=== PATIENT | male | born 1995 | race Caucasian/White ===

== ENCOUNTER 2016-12-19 04:41 | Emergency (ER) | payer OTHER ==
[~2016-12-19] VITALS: Ht 180.3 cm; Wt 100.4 kg
[~2016-12-19 04:41] MED LIST: BACT800T5 PO
[2016-12-19 04:45] VITALS: BP 134/76; PULSE 96; RESP 16; TEMP 97.9; O2SAT 99
[2016-12-19] MEDS ORDERED: CLINDAMYCIN 150 MG CAP PO ONE (05:15)
[2016-12-19] MEDS ORDERED: IBUPROFEN 800 MG TAB PO ONE (05:15)
[2016-12-19] MEDS ORDERED: CLIN1CAP5 PO (05:16)
--- NOTE | 2016-12-19 05:16 | PD ---
HPI Chief Complaint: Lump, Cyst, Hernia Time Seen by Provider: 05:08 Travel History International Travel<30 days: No Contact w/Intl Traveler<30days: No Traveled to known affect area: No History of Present Illness HPI 21-year-old male with history of asthma presents to the emergency department for complaint of buttock cleft pain. Patient has noticed discomfort to the area for 2 days. Patient states proximal or 2 days ago there is a small pinpoint size amount of purulent drainage and subsequently the area has become increasingly hard without increasing in size. Patient has had no fever no chills no nausea no vomiting no abdominal pain. Patient has been applying warm compresses to the area. Patient states area is quite tender to palpation but is not soft or fluctuant. Patient has taken 400 mg of ibuprofen as a one-time dose and then a subsequent 200 mg dose of ibuprofen. Patient denies other concerns or complaints. Patient is not identified and alleviating factor but does note that palpating this site does seem to increase the pain. PFSH Past Medical History Narrative Medical Asthma immunizations current tobacco use nursing notes reviewed Hx Anticoagulant Therapy: No Asthma: Yes Cardiovascular Problems: No Chemotherapy: No Cerebrovascular Accident: No Diabetes: No Diminished Hearing: No Respiratory: Yes (ASTHMA) Immunizations Current: Yes Influenza Vaccination: No Past Surgical History Surgical History: No Previous Surgery Social History Alcohol Use: No Tobacco Use: Yes (1/2PPD) Substance Use: No Allergies-Medications (Allergen,Severity, Reaction): Coded Allergies: Smoke (Verified Allergy, Severe, Sneezing, 12/19/16) cat dander (Unverified Allergy, Severe, Anaphylaxis, 12/19/16) feathers (Unverified Allergy, Severe, Anaphylaxis, 12/19/16) Reported Meds & Prescriptions Reported Meds & Active Scripts Active No Active Prescriptions or Reported Medications Review of Systems Except as stated in HPI: all other systems reviewed are Neg General / Constitutional: No: Fever, Chills HENT: No: Congestion Gastrointestinal: No: Vomiting, Abdominal Pain Skin: Positive Rash, Positive Lumps (buttock cleft) Hematologic/Lymphatic: No: Lymph Node Enlargement Physical Exam Narrative GENERAL: Well-developed well-nourished male in no acute distress no respiratory distress SKIN: Warm and dry. Attention buttock cleft 1 cm by half centimeter of indurated erythema with no central pointing or fluctuance tender to palpation no pustule or vesicle BACK: Nontender without obvious deformity. No CVA tenderness. Data Data Last Documented VS Vital Signs Date Time Temp Pulse Resp B/P (MAP) Pulse Ox O2 Delivery O2 Flow Rate FiO2 12/19/16 04:45 97.9 96 16 134/76 (95) 99 Orders Orders Clindamycin (Cleocin) (12/19/16 05:15) Ibuprofen (Motrin) (12/19/16 05:15) MDM Medical Decision Making Medical Screen Exam Complete: Yes Emergency Medical Condition: Yes Medical Record Reviewed: Yes Differential Diagnosis Pilonidal cyst, pilonidal abscess, furuncle Narrative Course Patient exam consistent with probable inflammation of a pilonidal cyst with early abscess site is quite firm and tender however non-fluctuant non-pointing. Discussed with patient in detail recommendation to attempt incision and drainage of site however is aware that may require repeat I&D if insufficient drainage. Patient states that he does not want to have incision and drainage but will take antibiotic. Discussed with patient that antibiotic may be successful and resolving this infection and taking the medication early however have explained to the patient that definitively he will need to return if he does not have incision and drainage at this time to have I&D of the site. Patient identifies that he understands but would like to proceed only with oral antibiotic at this time. Patient given first dose of oral antibiotic clindamycin as well as a one-time dose of weight-based ibuprofen for pain relief. Diagnosis Primary Impression: Infected pilonidal cyst Referrals: Primary Care Physician 2 days Patient Instructions: General Instructions Additional Instructions: Apply warm compresses May use ibuprofen/Advil/Motrin 800 mg as often as every 8 hours as needed for pain associated with inflammation or for fever 100.4F or greater May use acetaminophen/Tylenol as needed for fever 100.4F or greater or for minor pain Complete course of antibiotic Recommend recheck in 24-48 hours for incision and drainage of site or sooner if needed Return to the emergency department for any concerns or change in condition Follow-up with primary care provider Med/Other Pt SpecificInfo: Prescription(s) given Scripts Clindamycin (Clindamycin) 150 Mg Cap 300 MG PO Q6H for Infection for 7 Days, #56 CAP 0 Refills Prov: Aurora Dawn MD 12/19/16 Disposition: 01 DISCHARGE HOME Condition: Stable Aurora Dawn MD Dec 19, 2016 05:16
== END 2016-12-19 05:27 | disposition home or self-care (01) ==
LOC: PHED 04:41
DX: L05.01 Pilonidal cyst with abscess (principal); F17.210 Nicotine dependence, cigarettes, uncomplicated; J45.909 Unspecified asthma, uncomplicated
CPT/HCPCS: 99283

== ENCOUNTER 2017-01-02 14:50 | Emergency (ER) | payer OTHER ==
[~2017-01-02] VITALS: Ht 180.3 cm; Wt 101.5 kg
[~2017-01-02 14:50] MED LIST changes: -BACT800T5 PO; +CLIN1CAP5 PO
[2017-01-02 14:59] VITALS: BP 146/80; PULSE 97; RESP 18; TEMP 99.8; O2SAT 98
--- NOTE | 2017-01-02 15:37 | PD ---
HPI Chief Complaint: ENT Complaint Time Seen by Provider: 15:23 Travel History International Travel<30 days: No Contact w/Intl Traveler<30days: No Traveled to known affect area: No History of Present Illness HPI 21-year-old male here for evaluation of sore throat and cough for 1 day. States he has had strep throat prior with similar symptoms. Says he is having a difficult time sleeping because of the pain in his throat and mild headaches. Productive cough produces green sputum. He denies fever/chills, nausea, neck stiffness, vomiting, diarrhea, chest pain, shortness of breath. PFSH Past Medical History Hx Anticoagulant Therapy: No Asthma: Yes Cardiovascular Problems: No Chemotherapy: No Cerebrovascular Accident: No Diabetes: No Diminished Hearing: No Respiratory: Yes (ASTHMA) Immunizations Current: Yes ?: Not Social History Alcohol Use: No Tobacco Use: Yes (1/2PPD) Substance Use: No Allergies-Medications (Allergen,Severity, Reaction): Coded Allergies: Smoke (Verified Allergy, Severe, Sneezing, 01/02/17) cat dander (Unverified Allergy, Severe, Anaphylaxis, 01/02/17) feathers (Unverified Allergy, Severe, Anaphylaxis, 01/02/17) Reported Meds & Prescriptions Reported Meds & Active Scripts Active Penicillin V Potassium 500 Mg Tab 500 Mg PO Q12HR 10 Days Review of Systems Except as stated in HPI: all other systems reviewed are Neg Physical Exam Narrative GENERAL: Well-nourished, well-developed patient. SKIN: Focused skin assessment warm/dry. HEAD: Normocephalic. EYES: No scleral icterus. No injection or drainage. THROAT: Mild pharyngeal injection, white exudates, or tonsillar hypertrophy present. Airway is patent. NECK: Supple, trachea midline. No JVD or lymphadenopathy. No meningismus CARDIOVASCULAR: Regular rate and rhythm without murmurs, gallops, or rubs. RESPIRATORY: Breath sounds equal bilaterally. No accessory muscle use. GASTROINTESTINAL: Abdomen soft, non-tender, nondistended. MUSCULOSKELETAL: No cyanosis, or edema. BACK: Nontender without obvious deformity. No CVA tenderness. Data Data Last Documented VS Vital Signs Date Time Temp Pulse Resp B/P (MAP) Pulse Ox O2 Delivery O2 Flow Rate FiO2 01/02/17 14:59 99.8 97 18 146/80 (102) 98 MDM Medical Decision Making Medical Screen Exam Complete: Yes Emergency Medical Condition: Yes Differential Diagnosis Strep pharyngitis versus viral pharyngitis versus postnasal drip Narrative Course 21-year-old male presents with sore throat, cough, and subjective fever for 1 day. He says it feels like he has strep throat. Physical exam: no drooling, muffled voice, or neck swelling present. Tonsils demonstrate white exudate, and erythematous pharynx. No lymphadenopathy noted. Abdomen non tender, no hepatoslenomegaly, rashes, or CVA tenderness. While this patient has 2/4 Centor criteria (tonsilar exudates, fever), I believe this patient would benefit from treatment. Pt is a smoker and cough may be secondary to smoking. Pen VK prescribed. Pt given instructions for returning to the ED to include worsening of pain, SOB , or fever. Diagnosis Primary Impression: Strep pharyngitis Referrals: Primary Care Physician Additional Instructions: Use salt water gargles for symptoms Increase fluid intake. Take all antibiotics as prescribed Continue Tylenol or ibuprofen for fever per package instructions If you're sore throat worsens, developed fever or have increased shortness of breath return to the emergency department for further treatment and evaluation Scripts Penicillin V Potassium (Penicillin V Potassium) 500 Mg Tab 500 MG PO Q12HR for Infection for 10 Days, TAB 0 Refills Prov: Amrit Chavarria MD 01/02/17 Disposition: 01 DISCHARGE HOME Condition: Stable Sonia Trujillo Jan 02, 2017 15:37
[2017-01-02] MEDS ORDERED: PENI500T PO (15:40)
== END 2017-01-02 15:56 | disposition home or self-care (01) ==
LOC: PHEFT 14:50
DX: J02.0 Streptococcal pharyngitis (principal); R05 Cough; R51 Headache; R09.3 Abnormal sputum; F17.200 Nicotine dependence, unspecified, uncomplicated; Z87.09 Personal history of other diseases of the respiratory system
CPT/HCPCS: 99283

== ENCOUNTER 2017-08-12 21:40 | Emergency (ER) | payer OTHER ==
[~2017-08-12] VITALS: Ht 180.3 cm; Wt 111.5 kg
[~2017-08-12 21:40] MED LIST changes: -CLIN1CAP5 PO; +PENI500T PO
[2017-08-12 21:43] VITALS: BP 145/76; PULSE 86; RESP 16; TEMP 98.4; O2SAT 99
--- NOTE | 2017-08-12 22:29 | PD ---
HPI Chief Complaint: Cold / Flu Symptoms Time Seen by Provider: 22:00 Travel History International Travel<30 days: No Contact w/Intl Traveler<30days: No Traveled to known affect area: No History of Present Illness HPI 22-year-old man presents emerged from complaining of right-sided facial pain. Been sick for about 5 days now. A little bit of congestion. No real cough. Shaking chills and fevers at night with night sweats. Is a lot of pain and pressure in the left ear. He was trying to clean it out and feels like he jammed a lot of wax into the ear. He has feels muffled hearing and a lot of pressure in the ear also. No real history of medical problems. Symptoms been constant onset of persistent and worse. History Past Medical History Medical History: Denies Significant Hx Influenza Vaccination: No Social History Alcohol Use: No Tobacco Use: Yes (1/2PPD) Allergies-Medications (Allergen,Severity, Reaction): Coded Allergies: Smoke (Verified Allergy, Severe, Sneezing, 08/12/17) cat dander (Unverified Allergy, Severe, Anaphylaxis, 08/12/17) feathers (Unverified Allergy, Severe, Anaphylaxis, 08/12/17) Reported Meds & Prescriptions Reported Meds & Active Scripts Active Penicillin V Potassium 500 Mg Tab 500 Mg PO Q12HR 10 Days Review of Systems Except as stated in HPI: all other systems reviewed are Neg Physical Exam Narrative GENERAL: Well-appearing 22-year-old man, no acute distress. SKIN: Focused skin assessment warm/dry. HEAD: Atraumatic. Normocephalic. EYES: Pupils equal and round. No scleral icterus. No injection or drainage. ENT: No nasal bleeding or discharge. Mucous membranes pink and moist. Right ear is obstructed with cerumen. Was washed out. Afterwards he was a little bit of debris along the tympanic membrane. No definite bulging or erythema. NECK: Trachea midline. No JVD. No adenopathy. CARDIOVASCULAR: Regular rate and rhythm. No murmur appreciated. RESPIRATORY: No accessory muscle use. Clear to auscultation. Breath sounds equal bilaterally. GASTROINTESTINAL: Abdomen soft, non-tender, nondistended. Hepatic and splenic margins not palpable. MUSCULOSKELETAL: No obvious deformities. Data Data Last Documented VS Vital Signs Date Time Temp Pulse Resp B/P (MAP) Pulse Ox O2 Delivery O2 Flow Rate FiO2 08/12/17 21:43 98.4 86 16 145/76 (99) 99 Orders Orders Ear Irrigation (08/12/17 22:09) [facility] Medical Decision Making Medical Screen Exam Complete: Yes Emergency Medical Condition: Yes Differential Diagnosis Sinusitis, otitis media with effusion, acute otitis media, impacted cerumen, other Narrative Course Medical decision making 22-year-old male with sinusitis and pressure in his face. Cerumen impaction was removed by nursing staff. Appears much better. We will give him watch and see antibiotics to see if the cerumen impaction was causing the majority of the symptoms or not. Symptoms for about 5 days with fever night sweats, antibiotic treatments reasonable if he does not improve. Diagnosis Primary Impression: Sinusitis Additional Impression: Impacted cerumen of right ear Patient Instructions: General Instructions Additional Instructions: If you are worse tomorrow with high fevers, or are not improving in 48 hours, take antibiotics as prescribed. Take [id number] Aleve or ibuprofen if needed. Return to the emergency department for any new or worsening symptoms. Med/Other Pt SpecificInfo: No Change to Meds Disposition: 01 DISCHARGE HOME Condition: Stable Ander Mendoza MD August 12, 2017 22:29
[2017-08-12] MEDS ORDERED: AUGM875T3 PO (22:30)
== END 2017-08-12 22:43 | disposition home or self-care (01) ==
LOC: PHEFT 21:40
DX: J32.9 Chronic sinusitis, unspecified (principal); H61.21 Impacted cerumen, right ear; R50.9 Fever, unspecified; R61 Generalized hyperhidrosis; H93.92 Unspecified disorder of left ear; F17.200 Nicotine dependence, unspecified, uncomplicated
CPT/HCPCS: 99283